=== PATIENT | female | born 1960 | race Caucasian/White ===

== ENCOUNTER 2016-04-30 09:58 | Inpatient (IN) | payer BC ==
[~2016-04-30] VITALS: Ht 164.3 cm; Wt 85.9 kg
[~2016-04-30 09:58] MED LIST: ASPIRIN325 MG PO; GLUCOPHAGE500 MG PO; LIPITOR10 MG PO; LISINOPRIL10 MG PO
[2016-04-30 10:27] LABS: BASOPHILS 0.2 % (0.0-2.0); EOSINOPHILS 0.9 % (0-7); HEMATOCRIT 41.7 % (36.0-48.0); HEMOGLOBIN 13.5 g/dL (12-16); IMMATURE GRANULOCYTES 0.6 % (0-5); LYMPHOCYTES 21.6 % (15-50); MCH 28.7 pg (26.0-34.0); MCHC 32.4 g/dL (31.0-37.0); MCV 88.5 fL (80.0-100.0); MEAN PLATELET VOLUME 10.9 fL (7.4-10.4); MONOCYTES 4.4 % (2-11); NEUTROPHILS 72.3 % (40-80); PLATELET COUNT 216 10x3/uL (130-400); RBC 4.71 10x6/uL (4.00-5.40); RDW 13.1 % (11.5-14.5)
[2016-04-30 10:51] LABS: ALBUMIN 3.9 g/dL (3.4-5.0); ALKALINE PHOSPHATASE 89 U/L (46-116); ALT (SGPT) 27 U/L (10-68); BILIRUBIN - TOTAL 0.34 mg/dL (0.2-1.3); CALC OSMOLALITY 276 mosm/kg (275-300); CALCIUM 8.7 mg/dL (8.5-10.1); CARBON DIOXIDE 24.6 mmol/L (21.0-32.0); CHLORIDE - SERUM 101 mmol/L (98-107); CREATININE - SERUM 0.7 mg/dL (0.6-1.3); GLUCOSE 116 mg/dL (74-106); MAGNESIUM - SERUM 1.7 mg/dL (1.8-2.4); POTASSIUM - SERUM 3.5 mmol/L (3.5-5.1); PROTEIN - SERUM 6.5 g/dL (6.4-8.2); SODIUM 138 mmol/L (136-145); UREA NITROGEN 13 mg/dL (7-18); eGFR NON AFRICAN AMERICAN > 90 mL/min (90-120)
[2016-04-30 11:01] LABS: APTT 23.2 SECONDS (22.8-39.4); INR 1.02 (0.85-1.17); PROTIME 13.3 SECONDS (11.6-15.0)
[2016-04-30 11:22] LABS: UDS - AMPHET NEGATIVE QUAL (NEGATIVE); UDS - BARB NEGATIVE QUAL (NEGATIVE); UDS - BENZO NEGATIVE QUAL (NEGATIVE); UDS - COCAINE NEGATIVE QUAL (NEGATIVE); UDS - METH NEGATIVE QUAL (NEGATIVE); UDS - OPIATE NEGATIVE QUAL (NEGATIVE); UDS - PCP NEGATIVE QUAL (NEGATIVE); UDS - THC NEGATIVE QUAL (NEGATIVE)
[2016-04-30 11:24] LABS: APPEARANCE CLEAR (CLEAR); BILIRUBIN NEGATIVE (NEGATIVE); COLOR YELLOW (YELLOW); GLUCOSE 1000 mg/dL (NEGATIVE); KETONE NEGATIVE (NEGATIVE); LEUKOCYTE ESTERASE 2+ (NEGATIVE); NITRITE NEGATIVE (NEGATIVE); PROTEIN 1+ mg/dL (NEGATIVE); SPECIFIC GRAVITY 1.015 (1.005-1.020); UROBILINOGEN NORMAL (NORMAL)
[2016-04-30 11:25] LABS: AMORPHOUS SEDIMENT <1+ /lpf (NONE SEEN); BACTERIA MODERATE /hpf (NONE SEEN); EPITHELIAL CELLS 0-5 /hpf (0-5); MUCUS <1+ /lpf (NONE SEEN); RED CELLS - URINE 0-5 /hpf (0-5); WHITE CELLS - URINE 0-5 /hpf (0-5)
--- NOTE | 2016-04-30 15:20 | NUR ---
ALERT AND ORIENTED X4. ARRIVE TO UNIT VIA STRETCHER ACCOMPANIED BY RENEA REGAN AND SPOUSE. IV RT AND LT FA SL. DENIES PAIN. COMPLAINS OF LIGHT HEADEDNESS WHEN SITTING UP GREATER THAN 20 DEGREES. SINUS RHYTHM 81bpm ON TELEMETRY. DENIES SOB. RT HAND SLIGHTLY WEAKER THAN LEFT. NO SCDs. HEPARIN DRIP PER PROTOCOL. CONTINUE ADMISSION PROCESS. BED LOCKED AND LOW. CALL LIGHT IN REACH. TWO SIDERAILS UP.
[2016-04-30] MEDS ORDERED: GLUCOTROL 5 MG T5 MG PO (15:38)
[2016-04-30 16:15] VITALS: BP 132/86; BMI 31.1
[2016-04-30 17:25] LABS: CHOL - HDL RATIO 2.8 ratio (2.3-4.1); LDL-HDL RATIO 1.5 ratio (1.5-3.5)
--- NOTE | 2016-04-30 18:02 | NUR ---
ALERT AND ORIENTED X4. SPEECH THERAPY CONSULT COMPLETE. SWALLOW EVAL PASSED. DIABETIC DIET ORDERED. DENIES PAIN OR SOB. CONTINUE PLAN OF CARE. BED LOCKED AND LOW.CALL LIGHT IN REACH.
--- NOTE | 2016-04-30 19:00 | NUR ---
AWAKE WATCHING TV. REQUESTED BEDPAN TO VOID. IV IN L FA AND R FA INTACT SL. TELEMETRY SHOWS 80SR. 02 AT 2L/NC. DENIES PAIN OR ANY OTHER NEEDS. PRESENT IN ROOM.
--- NOTE | 2016-04-30 21:10 | NUR ---
ADMIN SCHED MED. REQUESTED BEDPAN TO VOID AND ANOTHER BLANKET.
[2016-04-30 22:35] VITALS: BP 137/79
[2016-05-01] VITALS (8 sets, daily range): BP systolic 116–147; BP diastolic 70–95; Ht 164.3 cm; Wt 85.9 kg
--- NOTE | 2016-05-01 07:37 | NUR ---
AM ROUNDING- PT LAYING IN BED ON BACK RESTING, C/O LEFT WRIST HURTING WHERE IV IS PLACED. NO REDNESS OR SWELLING SEEN. BUILDING SPECIALIST NURSE KARAN, REMOVED IV TO LEFT WRIST WITH CATH TIP INTACT. IV SEEN TO RIGHT WRIST SALINE LOCKED AND PATENT. ON EP, AWAITIG AM LABS TO COME BACK. ON 2L OF VIA NC. ON MONITOR SHOWING SR, HR 75. PER REPORT FROM BUILDING SPECIALIST NURSE KARAN, PT HAS RIGHT SIDED WEAKNESS. WILL CONTINUE TO MONITOR.
--- NOTE | 2016-05-01 07:38 | NUR ---
REMOVED IV IN L FA PER REQUEST. C/O IV WAS HURTING.
[2016-05-01 08:07] LABS: BASOPHILS 0.3 % (0.0-2.0); EOSINOPHILS 0.3 % (0-7); HEMATOCRIT 43.8 % (36.0-48.0); HEMOGLOBIN 14.2 g/dL (12-16); IMMATURE GRANULOCYTES 0.3 % (0-5); LYMPHOCYTES 14.9 % (15-50); MCH 28.5 pg (26.0-34.0); MCHC 32.4 g/dL (31.0-37.0); MCV 87.8 fL (80.0-100.0); MONOCYTES 3.9 % (2-11); NEUTROPHILS 80.3 % (40-80); PLATELET COUNT 235 10x3/uL (130-400); RBC 4.99 10x6/uL (4.00-5.40); RDW 13.2 % (11.5-14.5); WBC 8.7 10x3/uL (4.8-10.8)
--- NOTE | 2016-05-01 08:25 | NUR ---
SCD'S ARE ON.
[2016-05-01 08:42] LABS: CALC OSMOLALITY 274 mosm/kg (275-300); CALCIUM 9.5 mg/dL (8.5-10.1); CHLORIDE - SERUM 102 mmol/L (98-107); CREATININE - SERUM 0.6 mg/dL (0.6-1.3); GLUCOSE 102 mg/dL (74-106); SODIUM 138 mmol/L (136-145); UREA NITROGEN 11 mg/dL (7-18); eGFR NON AFRICAN AMERICAN > 90 mL/min (90-120)
[2016-05-01 09:53] LABS: HEMOGLOBIN A1C 6.7 % (4.8-6.0)
--- NOTE | 2016-05-01 14:11 | NUR ---
PT IS UP WITH PHYSICAL THERAPY.
--- NOTE | 2016-05-01 14:49 | NUR ---
PT SITTING UP IN CHAIR. PT STATES SHE IS FEELING SLIGHTLY DIZZY AND STILL HAS SOME TINGLING IN RIGHT SIDE. WILL CONTINUE TO MONITOR.
--- NOTE | 2016-05-01 18:25 | NUR ---
PT LAYING IN BED ON BACK TALKING ON PHONE. DENIES ANY NEED AT THIS TIME. WILL CONTINUE TO MONITOR.
--- NOTE | 2016-05-01 19:05 | NUR ---
ALERT/AWAKE WATCHING TV. REQUESTED CUP OF COFFEE. DID NOT WANT SCD'S ON. ORIENTED TO CALL LIGHT FOR ANY NEEDS.
--- NOTE | 2016-05-01 23:18 | NUR ---
EYES CLOSED. RR 20 EVEN U/L. REQUESTED EARLIER TO HOLD VITAL SIGNS IF ASLEEP.
--- NOTE | 2016-05-02 04:14 | NUR ---
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 DENIES ANY NEEDS OR DISCOMFORTS.
[2016-05-02 04:30] VITALS: BP 142/87
[2016-05-02 06:45] LABS: BASOPHILS 0.4 % (0.0-2.0); EOSINOPHILS 1.3 % (0-7); HEMATOCRIT 44.3 % (36.0-48.0); HEMOGLOBIN 14.2 g/dL (12-16); IMMATURE GRANULOCYTES 0.6 % (0-5); LYMPHOCYTES 28.9 % (15-50); MCH 28.4 pg (26.0-34.0); MCHC 32.1 g/dL (31.0-37.0); MCV 88.6 fL (80.0-100.0); MEAN PLATELET VOLUME 11.6 fL (7.4-10.4); NEUTROPHILS 62.8 % (40-80); PLATELET COUNT 238 10x3/uL (130-400); RDW 13.3 % (11.5-14.5); WBC 7.2 10x3/uL (4.8-10.8)
[2016-05-02 06:56] LABS: CALC OSMOLALITY 272 mosm/kg (275-300); CALCIUM 9.4 mg/dL (8.5-10.1); CARBON DIOXIDE 28.6 mmol/L (21.0-32.0); CHLORIDE - SERUM 101 mmol/L (98-107); CREATININE - SERUM 0.5 mg/dL (0.6-1.3); GLUCOSE 115 mg/dL (74-106); POTASSIUM - SERUM 4.5 mmol/L (3.5-5.1); SODIUM 136 mmol/L (136-145); UREA NITROGEN 13 mg/dL (7-18); eGFR NON AFRICAN AMERICAN > 90 mL/min (90-120)
--- NOTE | 2016-05-02 07:25 | NUR ---
ASSESSMENT COMPLETED. DENIES ANY NEEDS. TELEMERTY SHOWS SR AT 78. 02 AT 2 L/M PER NC. PT HAS SOME RIGHTSIDED WEAKNESS. PT HAS SCDS ON. WILL MONITOR
--- NOTE | 2016-05-02 07:36 | NUR ---
PT SITTING UP IN BED WATCHING TV PT DENIES NEEDS AT THIS TIME WILL CONTINUE TO MONITOR.
[2016-05-02 09:00] VITALS: BP 142/91
[2016-05-02 11:58] VITALS: BP 129/82
[2016-05-02] MEDS ORDERED: ANTIVERT12.5 MG PO (13:02)
--- NOTE | 2016-05-02 15:49 | NUR ---
IV DCD WITH TIP INTACT. INSTRUCTIONS GIVEN. TO PRIVATE CAR PER WHEEL CHAIR
== END 2016-05-02 16:53 | disposition home or self-care (01) | DRG 312 ==
LOC: D.ER 09:58 → D.M2 14:05
PROVIDERS: Emergency Medicine; Family Medicine; Psychiatry & Neurology Neurology; ADMIT Emergency Medicine
DX: R55 Syncope and collapse (principal); I69.951 Hemiplegia and hemiparesis following unspecified cerebrovascular disease affecting right dominant side; I10 Essential (primary) hypertension; E11.9 Type 2 diabetes mellitus without complications; E78.5 Hyperlipidemia, unspecified; R42 Dizziness and giddiness; R40.2363 Coma scale, best motor response, obeys commands, at hospital admission; R40.2143 Coma scale, eyes open, spontaneous, at hospital admission; R40.2253 Coma scale, best verbal response, oriented, at hospital admission

== ENCOUNTER 2016-05-31 07:43 | Emergency (ER) | payer BC ==
[2016-05-01 11:46] VITALS: BMI 31.0
[~2016-05-31 07:43] MED LIST changes: +ANTIVERT12.5 MG PO; +GLUCOTROL 5 MG T5 MG PO
[2016-05-31 08:17] LABS: UDS - AMPHET NEGATIVE QUAL (NEGATIVE); UDS - BARB NEGATIVE QUAL (NEGATIVE); UDS - BENZO POSITIVE QUAL (NEGATIVE); UDS - COCAINE NEGATIVE QUAL (NEGATIVE); UDS - METH NEGATIVE QUAL (NEGATIVE); UDS - OPIATE NEGATIVE QUAL (NEGATIVE); UDS - PCP NEGATIVE QUAL (NEGATIVE); UDS - THC NEGATIVE QUAL (NEGATIVE)
[2016-05-31 11:23] LABS: BASOPHILS 0.3 % (0.0-2.0); EOSINOPHILS 1.4 % (0-7); HEMATOCRIT 42.5 % (36.0-48.0); HEMOGLOBIN 13.6 g/dL (12-16); IMMATURE GRANULOCYTES 0.4 % (0-5); LYMPHOCYTES 11.2 % (15-50); MCH 28.6 pg (26.0-34.0); MCV 89.3 fL (80.0-100.0); MEAN PLATELET VOLUME 12.2 fL (7.4-10.4); MONOCYTES 4.3 % (2-11); NEUTROPHILS 82.4 % (40-80); PLATELET COUNT 238 10x3/uL (130-400); RBC 4.76 10x6/uL (4.00-5.40); RDW 13.1 % (11.5-14.5); WBC 11.8 10x3/uL (4.8-10.8)
== END 2016-05-31 14:25 | disposition home or self-care (01) ==
LOC: D.ER 07:43
PROVIDERS: Emergency Medicine
DX: R56.9 Unspecified convulsions (principal); E11.9 Type 2 diabetes mellitus without complications; R74.0 Nonspecific elevation of levels of transaminase and lactic acid dehydrogenase [LDH]; I10 Essential (primary) hypertension; Z86.73 Personal history of transient ischemic attack (TIA), and cerebral infarction without residual deficits

== ENCOUNTER → 2016-06-14 10:30 | Outpatient (CLI) | payer BC ==
[2016-05-01 11:46] VITALS: BMI 31.0
--- NOTE | 2016-06-20 07:16 | EEG ---
PATIENT:ISABELLA SALGUERO DATE OF SERVICE: 06/14/16 MEDICAL RECORD: [id number] DATE OF : 64 LOCATION: [facility] ADMISSION DATE: 06/14/16 REFERRING PHYSICIAN: INTERPRETING PHYSICIAN: PJ SOTO MD DATE OF SERVICE: 06/14/2016 Electroencephalographic Report REFERRED BY: Dr. Gasca as an outpatient. ELECTROENCEPHALOGRAM NUMBER: [id number]. DATE OF EXAMINATION: 06/14/2016 at 11:15 a.m. TECHNICAL DATA: This electroencephalographic recording consists of approximately 20 minutes of data collection utilizing the international 10/20 system of electrode placement and both referential and non-referential montages. Sixteen channels of electrocerebral recording are accompanied by a 17th channel dedicated to the electrocardiographic rhythm and 2 channels of electromyographic recording. Recording is performed in the awake and drowsy states utilizing activation by hyperventilation and photic stimulation. ELECTROENCEPHALOGRAPHIC DATA: The awake state comprises approximately 50% of the recorded electrocerebral activity. Electromyographic artifact is prominent and rapid eye movements are seen. The posterior dominant background consists of a well-developed, symmetric, rhythmic, waxing and waning alpha activity of 10-11 Hz, which is suppressed by eye opening. Also observed are fairly frequent sharp waves with a minor after going slow component, maximal on this scalp recording at T3 in the left temporal region. No clinical or electrocerebral seizures were identified. The drowsy state comprises the remaining portion of the recorded electrocerebral activity. Electromyographic artifact is diminished and rapid eye movements are not seen. The posterior dominant background is relatively suppressed. Left temporal sharp waves are more prominent in stage I sleep. Hyperventilation and photic stimulation induced no abnormal change in the recorded electrocerebral activity. INTERPRETATION: Sharp waves, focal, left temporal (awake and drowsy). This electroencephalographic recording is indicative of an epileptogenic focus of left temporal origin, maximal on this scalp recording at T3. 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
== END | disposition home or self-care (01) ==
LOC: D.CN 10:30
DX: G40.909 Epilepsy, unspecified, not intractable, without status epilepticus (principal)

== ENCOUNTER 2016-07-04 09:41 | Emergency (ER) | payer BC ==
[2016-05-01 11:46] VITALS: BMI 31.0
[2016-07-04 10:10] LABS: BASOPHILS 0.6 % (0.0-2.0); EOSINOPHILS 1.7 % (0-7); HEMATOCRIT 43.8 % (36.0-48.0); HEMOGLOBIN 14.2 g/dL (12-16); IMMATURE GRANULOCYTES 0.4 % (0-5); LYMPHOCYTES 25.7 % (15-50); MCH 28.9 pg (26.0-34.0); MCHC 32.4 g/dL (31.0-37.0); MCV 89.2 fL (80.0-100.0); MONOCYTES 7.6 % (2-11); PLATELET COUNT 217 10x3/uL (130-400); RBC 4.91 10x6/uL (4.00-5.40); RDW 13.5 % (11.5-14.5); WBC 4.7 10x3/uL (4.8-10.8)
[2016-07-04 10:12] LABS: UDS - AMPHET NEGATIVE QUAL (NEGATIVE); UDS - BARB NEGATIVE QUAL (NEGATIVE); UDS - BENZO NEGATIVE QUAL (NEGATIVE); UDS - COCAINE NEGATIVE QUAL (NEGATIVE); UDS - METH NEGATIVE QUAL (NEGATIVE); UDS - OPIATE NEGATIVE QUAL (NEGATIVE); UDS - PCP NEGATIVE QUAL (NEGATIVE); UDS - THC NEGATIVE QUAL (NEGATIVE)
[2016-07-04 10:23] LABS: APPEARANCE CLEAR (CLEAR); BILIRUBIN NEGATIVE (NEGATIVE); COLOR YELLOW (YELLOW); GLUCOSE NEGATIVE (NEGATIVE); KETONE NEGATIVE (NEGATIVE); LEUKOCYTE ESTERASE NEGATIVE (NEGATIVE); NITRITE NEGATIVE (NEGATIVE); PROTEIN NEGATIVE (NEGATIVE); UROBILINOGEN NORMAL (NORMAL)
[2016-07-04 10:25] LABS: ALBUMIN 3.7 g/dL (3.4-5.0); ALKALINE PHOSPHATASE 113 U/L (46-116); ALT (SGPT) 25 U/L (10-68); BILIRUBIN - TOTAL 0.22 mg/dL (0.2-1.3); CALC OSMOLALITY 278 mosm/kg (275-300); CALCIUM 8.7 mg/dL (8.5-10.1); CARBON DIOXIDE 25.5 mmol/L (21.0-32.0); CHLORIDE - SERUM 102 mmol/L (98-107); CREATININE - SERUM 0.6 mg/dL (0.6-1.3); GLUCOSE 110 mg/dL (74-106); PHENYTOIN (DILANTIN) 4.1 ug/mL (10.0-20.0); POTASSIUM - SERUM 4.1 mmol/L (3.5-5.1); PROTEIN - SERUM 6.9 g/dL (6.4-8.2); SODIUM 138 mmol/L (136-145); UREA NITROGEN 19 mg/dL (7-18); eGFR NON AFRICAN AMERICAN > 90 mL/min (90-120)
== END 2016-07-04 12:10 | disposition home or self-care (01) ==
LOC: D.ER 09:41
PROVIDERS: Emergency Medicine
DX: R56.9 Unspecified convulsions (principal); E83.42 Hypomagnesemia; E11.9 Type 2 diabetes mellitus without complications; R74.0 Nonspecific elevation of levels of transaminase and lactic acid dehydrogenase [LDH]; I10 Essential (primary) hypertension; Z86.73 Personal history of transient ischemic attack (TIA), and cerebral infarction without residual deficits

== ENCOUNTER → 2016-07-08 10:12 | Outpatient (CLI) | payer BC ==
[2016-05-01 11:46] VITALS: BMI 31.0
[2016-07-10 10:13] LABS: 5HIAA - 24HR 2.4 mg/24 hr (0.0-14.9); 5HIAA - UR 1.5 mg/L (Undefined)
== END | disposition home or self-care (01) ==
LOC: D.LAB 07-06 13:15
PROVIDERS: Psychiatry & Neurology Neurology
DX: I10 Essential (primary) hypertension (principal); R55 Syncope and collapse; E11.40 Type 2 diabetes mellitus with diabetic neuropathy, unspecified; I63.239 Cerebral infarction due to unspecified occlusion or stenosis of unspecified carotid artery

== ENCOUNTER 2016-08-27 08:17 | Emergency (ER) | payer BC ==
[2016-05-01 11:46] VITALS: BMI 31.0
[2016-08-27 09:22] LABS: BASOPHILS 0.2 % (0-2); EOSINOPHILS 0.8 % (0-7); HEMATOCRIT 44.5 % (36.0-48.0); HEMOGLOBIN 14.3 g/dL (12-16); IMMATURE GRANULOCYTES 0.5 % (0-5); LYMPHOCYTES 12.3 % (15-50); MCH 29.2 pg (26.0-34.0); MCHC 32.1 g/dL (31.0-37.0); MCV 90.8 fL (80.0-100.0); MONOCYTES 4.2 % (2-11); PLATELET COUNT 211 10x3/uL (130-400); RDW 13.2 % (11.5-14.5); WBC 8.6 10x3/uL (4.8-10.8)
[2016-08-27 09:35] LABS: UDS - AMPHET NEGATIVE QUAL (NEGATIVE); UDS - BARB NEGATIVE QUAL (NEGATIVE); UDS - BENZO NEGATIVE QUAL (NEGATIVE); UDS - COCAINE NEGATIVE QUAL (NEGATIVE); UDS - METH NEGATIVE QUAL (NEGATIVE); UDS - OPIATE NEGATIVE QUAL (NEGATIVE); UDS - PCP NEGATIVE QUAL (NEGATIVE); UDS - THC NEGATIVE QUAL (NEGATIVE)
[2016-08-27 09:40] LABS: ALBUMIN 3.9 g/dL (3.4-5.0); ALKALINE PHOSPHATASE 115 U/L (46-116); ALT (SGPT) 30 U/L (10-68); BILIRUBIN - TOTAL 0.19 mg/dL (0.2-1.3); CALC OSMOLALITY 276 mosm/kg (275-300); CARBON DIOXIDE 27.4 mmol/L (21.0-32.0); CHLORIDE - SERUM 102 mmol/L (98-107); CREATININE - SERUM 0.7 mg/dL (0.6-1.3); GLUCOSE 93 mg/dL (74-106); PHENYTOIN (DILANTIN) 3.8 ug/mL (10.0-20.0); POTASSIUM - SERUM 3.9 mmol/L (3.5-5.1); PROTEIN - SERUM 7.1 g/dL (6.4-8.2); SODIUM 137 mmol/L (136-145); UREA NITROGEN 22 mg/dL (7-18); eGFR NON AFRICAN AMERICAN > 90 mL/min (90-120)
== END 2016-08-27 10:28 | disposition home or self-care (01) ==
LOC: D.ER 08:17
PROVIDERS: Emergency Medicine
DX: R56.9 Unspecified convulsions (principal); E11.9 Type 2 diabetes mellitus without complications; I10 Essential (primary) hypertension; Z86.73 Personal history of transient ischemic attack (TIA), and cerebral infarction without residual deficits; E83.42 Hypomagnesemia

== ENCOUNTER → 2017-01-20 16:49 | Outpatient (CLI) | payer BC ==
[2016-05-01 11:46] VITALS: BMI 31.0
== END | disposition home or self-care (01) ==
LOC: D.MAMMO 12-28 14:15
DX: Z12.31 Encounter for screening mammogram for malignant neoplasm of breast (principal)

== ENCOUNTER → 2017-02-11 09:00 | Outpatient (CLI) | payer BC ==
[2016-05-01 11:46] VITALS: BMI 31.0
== END | disposition home or self-care (01) ==
LOC: D.MAMMO 09:00
DX: R92.8 Other abnormal and inconclusive findings on diagnostic imaging of breast (principal)

== ENCOUNTER 2017-02-25 17:42 | Emergency (ER) | payer BC ==
[2016-05-01 11:46] VITALS: BMI 31.0
== END 2017-02-25 20:18 | disposition home or self-care (01) ==
LOC: D.ER 17:42
DX: S05.01XA Injury of conjunctiva and corneal abrasion without foreign body, right eye, initial encounter (principal); X58.XXXA Exposure to other specified factors, initial encounter; Y93.89 Activity, other specified; Y92.029 Unspecified place in mobile home as the place of occurrence of the external cause; E11.9 Type 2 diabetes mellitus without complications; Z86.73 Personal history of transient ischemic attack (TIA), and cerebral infarction without residual deficits

== ENCOUNTER → 2017-04-07 12:46 | Outpatient (CLI) | payer BC ==
[2016-05-01 11:46] VITALS: BMI 31.0
== END | disposition home or self-care (01) ==
LOC: D.MAMMO 09:30
DX: R92.8 Other abnormal and inconclusive findings on diagnostic imaging of breast (principal)

== ENCOUNTER → 2017-05-24 11:57 | Outpatient (CLI) | payer OTHER ==
[2016-05-01 11:46] VITALS: BMI 31.0
== END | disposition home or self-care (01) ==
LOC: D.RAD 11:57
DX: Z02.71 Encounter for disability determination (principal)

== ENCOUNTER 2017-10-10 08:00 | Outpatient (CLI) | payer BC ==
[2016-05-01 11:46] VITALS: BMI 31.0
== END 2017-10-10 08:01 | disposition home or self-care (01) ==
LOC: D.MAMMO 08:00 → D.US 09:30 → D.MAMMO 10:30
DX: R92.8 Other abnormal and inconclusive findings on diagnostic imaging of breast (principal)

== ENCOUNTER 2018-01-31 10:38 | Emergency (ER) | payer BC ==
[~2018-01-31] VITALS: Ht 164.3 cm; Wt 72.7 kg
[2018-01-31 10:40] VITALS: BP 127/74; Ht 164.3 cm; Wt 72.7 kg
[2018-01-31] MEDS ORDERED: KEPPRA1000 MG PO (10:43)
[2018-01-31 11:37] LABS: BASOPHILS 0.2 % (0-2); EOSINOPHILS 1.9 % (0-7); HEMATOCRIT 42.1 % (36.0-48.0); HEMOGLOBIN 13.5 g/dL (12-16); IMMATURE GRANULOCYTES 0.3 % (0-5); MCH 28.1 pg (26.0-34.0); MCHC 32.1 g/dL (31.0-37.0); MCV 87.7 fL (80.0-100.0); MEAN PLATELET VOLUME 10.9 fL (7.4-10.4); MONOCYTES 4.5 % (2-11); NEUTROPHILS 80.1 % (40-80); PLATELET COUNT 228 10x3/uL (130-400); RDW 13.8 % (11.5-14.5); WBC 9.8 10x3/uL (4.8-10.8)
[2018-01-31 11:54] LABS: ALBUMIN 3.5 g/dL (3.4-5.0); ALKALINE PHOSPHATASE 87 U/L (46-116); ALT (SGPT) 20 U/L (10-68); BILIRUBIN - TOTAL 0.19 mg/dL (0.2-1.3); CALC OSMOLALITY 274 mosm/kg (275-300); CALCIUM 8.6 mg/dL (8.5-10.1); CARBON DIOXIDE 25.9 mmol/L (21.0-32.0); CHLORIDE - SERUM 103 mmol/L (98-107); CREATININE - SERUM 0.7 mg/dL (0.6-1.3); GLUCOSE 86 mg/dL (74-106); MAGNESIUM - SERUM 1.9 mg/dL (1.8-2.4); POTASSIUM - SERUM 3.8 mmol/L (3.5-5.1); PROTEIN - SERUM 6.6 g/dL (6.4-8.2); SODIUM 138 mmol/L (136-145); UREA NITROGEN 13 mg/dL (7-18); eGFR NON AFRICAN AMERICAN > 90 mL/min (90-120)
== END 2018-01-31 16:01 | disposition home or self-care (01) ==
LOC: D.ER 10:38
PROVIDERS: Family Medicine
DX: G40.909 Epilepsy, unspecified, not intractable, without status epilepticus (principal); Z91.14 Patient's other noncompliance with medication regimen; E11.9 Type 2 diabetes mellitus without complications; Z85.41 Personal history of malignant neoplasm of cervix uteri

== ENCOUNTER 2018-05-29 08:00 | Outpatient (CLI) | payer BC ==
[2018-01-31 10:40] VITALS: BMI 26.9
[~2018-05-29 08:00] MED LIST changes: +KEPPRA1000 MG PO
== END 2018-05-29 09:00 | disposition home or self-care (01) ==
LOC: D.MAMMO 08:00
DX: R92.8 Other abnormal and inconclusive findings on diagnostic imaging of breast (principal)

== ENCOUNTER → 2019-08-02 13:07 | Outpatient (CLI) | payer BC ==
[2018-01-31 10:40] VITALS: BMI 26.9
[2019-08-02 13:25] LABS: BASOPHILS 0.6 % (0-2); EOSINOPHILS 3.1 % (0-7); HEMATOCRIT 44.5 % (36.0-48.0); HEMOGLOBIN 13.7 g/dL (12-16); IMMATURE GRANULOCYTES 0.5 % (0-5); LYMPHOCYTES 23.3 % (15-50); MCH 27.5 pg (26.0-34.0); MCHC 30.8 g/dL (31.0-37.0); MCV 89.2 fL (80.0-100.0); MONOCYTES 5.9 % (2-11); NEUTROPHILS 66.6 % (40-80); RBC 4.99 10x6/uL (4.00-5.40); RDW 13.3 % (11.5-14.5); WBC 7.9 10x3/uL (4.8-10.8)
[2019-08-02 13:28] LABS: PLATELET COUNT 290 10x3/uL (130-400)
== END | disposition home or self-care (01) ==
LOC: D.LAB 13:07
PROVIDERS: ATTEND Psychiatry & Neurology Neurology
DX: R56.9 Unspecified convulsions (principal)

== ENCOUNTER 2019-11-10 00:33 | Emergency (ER) | payer BC ==
[~2019-11-10] VITALS: Ht 164.3 cm; Wt 98.0 kg
[2019-11-10 00:53] VITALS: Ht 164.3 cm; Wt 98.0 kg
[2019-11-10] MEDS ORDERED: DOXYCYCLINE HY100 M2 PO (01:22)
[2019-11-10] MEDS ORDERED: FLAGYL500 MG PO (01:22)
[2019-11-10 02:10] VITALS: BP 130/70
== END 2019-11-10 02:12 | disposition home or self-care (01) ==
LOC: D.ER 00:33
DX: S41.152A Open bite of left upper arm, initial encounter (principal); W54.0XXA Bitten by dog, initial encounter; Y93.9 Activity, unspecified; Y92.9 Unspecified place or not applicable; Z86.73 Personal history of transient ischemic attack (TIA), and cerebral infarction without residual deficits; E11.9 Type 2 diabetes mellitus without complications; Z79.84 Long term (current) use of oral hypoglycemic drugs